=== PATIENT | female | born 1955 | race Native Hawaiian/Other Pacific Islander ===

== ENCOUNTER 2016-10-11 07:03 | Day surgery (SDC) | payer OTHER ==
[2016-10-11] MEDS ORDERED: NACL 0.9% 1000 ML 1,000 ML IV SCH (09:00)
[2016-10-11] MEDS ORDERED: DIPRIVAN 10 MG/ML IV ONE (09:09)
[2016-10-11] MEDS ORDERED: WATER FOR IRRIG STERILE IR ONE (09:17)
--- NOTE | 2016-10-11 09:32 | Short Stay Summary ---
Short Stay Documentation - Allergies and Medications Current Medications: Allergies Sulfa (Sulfonamide Antibiotics) Allergy (Mild, Verified 10/09/16 13:30) Itching tramadol Allergy (Mild, Verified 10/09/16 13:30) Itching tachycardia Home Medications Medication Instructions Recorded Confirmed Last Taken Type PriLOSEC 1 tab PO DAILY 10/09/16 10/11/16 10/10/16 History Active Medications Sodium Chloride (Nacl 0.9% 1000 Ml) 1,000 mls @ 50 mls/hr IV DIRECT DONNA Last Admin: 10/11/16 08:54 Dose: 50 mls/hr - Brief post op/procedure progress note Date of procedure: 10/11/16 Pre-op diagnosis: 1. epigastric pain 2. melena Post-op diagnosis: same (1. GERD 2. Gastritis 2. Duodenitis) Procedure: EGD with biopsy Anesthesia: MAC Findings: as above Surgeon: ONOFRE SCHAEFFER Estimated blood loss: none Pathology: list (1. Antrum) Specimen disposition: to lab Condition: stable - Disposition Condition at discharge: Stable Disposition: DC- TO HOME OR SELFCARE Short Stay Discharge Plan Activity: no restrictions Weight Bearing Status: Full Weight Bearing Diet: regular Follow up with: HA THORNTON MD [Primary Care Provider] - 7 Days
--- NOTE | 2016-10-11 09:37 | Anesthesia Day of Surgery ---
Anesthesia Day of Surgery - Day of Surgery Patient Examined: Yes Patient H&P Reviewed: Yes Patient is NPO: Yes
--- NOTE | 2016-10-11 09:37 | Anesthesia Consultation ---
Anesthesia Consult and Med Hx Date of service: 10/11/16 - Airway Anesthetic Teeth Evaluation: Good ROM Head & Neck: Adequate Mental/Hyoid Distance: Adequate Mallampati Class: Class II Intubation Access Assessment: Probably Good - Pulmonary Exam CTA: Yes - Cardiac Exam Cardiac Exam: RRR - Pre-Operative Health Status ASA Pre-Surgery Classification: ASA1 Proposed Anesthetic Plan: MAC - Pulmonary Hx Smoking: No - Cardiovascular System Hx Hypertension: No Hx Heart Attack/AMI: No - Central Nervous System Hx Back Pain: Yes (hx of back surgery) - Additional Comments Anesthesia Medical History Comments: NAC
[2016-10-11 09:57] VITALS: BP 109/73
--- NOTE | 2016-10-11 10:38 | Post Anesthesia Evaluation ---
- Post Anesthesia Evaluation Patient Participated: Yes Airway Patent: Yes Stable Respiratory Function: Yes Nausea/Vomiting: No Temp > 96.8F: Yes Pain Manageable: Yes Adequeate Hydration: Yes Anesthesia Complications: No Block Receding Appropriately: Not Applicable Patient on Ventilator: No
== END 2016-10-11 07:04 | disposition home or self-care (01) ==
LOC: GIO 07:03
PROVIDERS: ATTEND Internal Medicine Gastroenterology
DX: K21.9 Gastro-esophageal reflux disease without esophagitis (principal); K29.50 Unspecified chronic gastritis without bleeding; K29.80 Duodenitis without bleeding; Z88.8 Allergy status to other drugs, medicaments and biological substances; Z88.2 Allergy status to sulfonamides; Z90.710 Acquired absence of both cervix and uterus; Z98.890 Other specified postprocedural states; Z87.19 Personal history of other diseases of the digestive system
CPT/HCPCS: 43239; 88305; 88342; J2704; J7030